=== PATIENT | male | born 1995 | race Caucasian/White ===

== ENCOUNTER 2017-01-13 18:52 | Emergency (ER) | payer OTHER, SELFPAY ==
[~2017-01-13] VITALS: Ht 177.8 cm; Wt 70.4 kg
[2017-01-13] MEDS ORDERED: ADACEL/BOOSTRIX VACCINE (DIPHTH/PERTUSS/ACELL/TETANUS)0.5ML SYR (90715) IM ONE (20:30)
[2017-01-13 20:59] VITALS: BP 140/69
== END 2017-01-13 21:00 | disposition home or self-care (01) ==
LOC: M ED 18:52
DX: S13.4XXA Sprain of ligaments of cervical spine, initial encounter (principal); S50.811A Abrasion of right forearm, initial encounter; V48.0XXA Car driver injured in noncollision transport accident in nontraffic accident, initial encounter; Y92.410 Unspecified street and highway as the place of occurrence of the external cause; Y99.9 Unspecified external cause status; Y93.9 Activity, unspecified; Z23 Encounter for immunization